=== PATIENT | female | born 1950 | race Caucasian/White ===

== ENCOUNTER → 2022-09-30 | Outpatient (CLI) | payer MEDICARE, BC | LOC: M WHC 10:28 | PROVIDERS: ATTEND Nurse Practitioner Family | DX: Z12.31 Encounter for screening mammogram for malignant neoplasm of breast (principal); Z78.0 Asymptomatic menopausal state ==

== ENCOUNTER → 2022-11-05 | Outpatient (REF) | payer MEDICARE, BC ==
[2022-11-05 17:08] LABS: APPEARANCE, URINE CLEAR (CLEAR); BACTERIA, URINE AUTO NEGATIVE (NEGATIVE); BILIRUBIN, URINE AUTO NEGATIVE (NEGATIVE); BLOOD, URINE BLOOD NEGATIVE (NEGATIVE); COLOR, URINE STRAW (YELLOW); GLUCOSE, URINE (UA) AUTO NEGATIVE (NEGATIVE); KETONE, URINE AUTO NEGATIVE (NEGATIVE); LEUKOCYTE ESTERASE, URINE AUTO NEGATIVE (NEGATIVE); NITRITE, URINE AUTO NEGATIVE (NEGATIVE); PROTEIN, URINE AUTO 1+ mg/dL (NEGATIVE); RBC, URINE AUTO 0 /HPF (0-3); SPECIFIC GRAVITY URINE AUTO 1.005 (1.002-1.035); SQUAMOUS EPITHELIAL CELL UR AU 0 /HPF (0-6); UROBILINOGEN, URINE AUTO 0.2 mg/dL (0.0-2.0); WBC, URINE AUTO 0 /HPF (0-3)
[2022-11-05 17:27] LABS: TOTAL PROTEIN,RANDOM URINE 25.8 MG/DL (0.0-14.0)
[2022-11-05 17:32] LABS: CREATININE,RANDOM URINE 15.9 MG/DL
[2022-11-05 17:44] LABS: BASO % 0.8 % (0.0-1.0); EOS # 0.2 10^3/uL (0.0-0.5); EOS % 4.2 % (0.0-3.0); HEMATOCRIT 42.6 % (36.0-47.0); HEMOGLOBIN 13.9 g/dl (12.0-15.5); LYMPH # 1.4 10^3/uL (1.5-5.0); LYMPH % 27.5 % (24.0-44.0); MEAN CORPUSCULAR HEMOGLOBIN 31.6 pg (27.0-33.0); MEAN CORPUSCULAR HGB CONC 32.6 g/dl (32.0-36.5); MEAN CORPUSCULAR VOLUME 96.8 fl (80.0-96.0); MONO # 0.8 10^3/uL (0.0-0.8); MONO % 16.4 % (2.0-8.0); NEUTROPHILS # 2.6 10^3/uL (1.5-8.5); NEUTROPHILS % 50.7 % (36.0-66.0); PLATELET COUNT, AUTOMATED 203 10^3/uL (150-450); WHITE BLOOD COUNT 5.1 10^3/uL (4.0-10.0)
[2022-11-05 18:13] LABS: C REACTIVE PROTEIN QUANTITATIV < 0.40 MG/DL (<1.0)
[2022-11-05 18:14] LABS: ERYTHROCYTE SEDIMENTATION RATE 36 mm/hr (0-30)
[2022-11-05 18:15] LABS: ALBUMIN 4.7 G/DL (3.2-5.2); ALKALINE PHOSPHATASE 55 U/L (46-116); ALT/SGPT 51 U/L (7.0-40); AST/SGOT 38 U/L (<34); BILIRUBIN,TOTAL 0.9 MG/DL (0.3-1.2); BLOOD UREA NITROGEN 15 MG/DL (9-23); CALCIUM LEVEL 9.8 MG/DL (8.3-10.6); CARBON DIOXIDE LEVEL 29 MMOL/L (20-31); CHLORIDE LEVEL 100 MMOL/L (98-107); COMPLEMENT C3 156.7 MG/DL (90.0-170.0); COMPLEMENT C4 33.7 MG/DL (12-36); CREATININE FOR GFR 0.66 MG/DL (0.55-1.30); GLOMERULAR FILTRATION RATE > 60.0 (>39); GLUCOSE, FASTING 97 MG/DL (74-106); POTASSIUM SERUM 3.9 MMOL/L (3.5-5.1); SODIUM LEVEL 137 MMOL/L (136-145)
== END ==
LOC: M SFHCRHEU 12:39
PROVIDERS: ATTEND Internal Medicine Rheumatology
DX: R76.8 Other specified abnormal immunological findings in serum (principal); M25.50 Pain in unspecified joint

== ENCOUNTER → 2022-11-07 | Outpatient (CLI) | payer MEDICARE, BC | LOC: M RAD 10:08 | PROVIDERS: ATTEND Internal Medicine Rheumatology | DX: R76.8 Other specified abnormal immunological findings in serum (principal); M25.50 Pain in unspecified joint ==

== ENCOUNTER → 2022-11-07 | Outpatient (CLI) | payer MEDICARE, BC | LOC: M RAD 09:59 | PROVIDERS: ATTEND Nurse Practitioner Family | DX: Z12.2 Encounter for screening for malignant neoplasm of respiratory organs (principal); F17.211 Nicotine dependence, cigarettes, in remission; I65.23 Occlusion and stenosis of bilateral carotid arteries; R76.8 Other specified abnormal immunological findings in serum; M25.50 Pain in unspecified joint ==

== ENCOUNTER → 2022-11-07 | Outpatient (CLI) | payer MEDICARE, BC | LOC: M RAD 10:02 | PROVIDERS: ATTEND Physician Assistant | DX: I65.23 Occlusion and stenosis of bilateral carotid arteries (principal) ==

== ENCOUNTER 2023-02-05 09:10 | Day surgery (SDC) | payer MEDICARE, BC ==
[~2023-02-05] VITALS: Ht 167.6 cm; Wt 83.6 kg
[~2023-02-05 09:10] MED LIST: AMLO1TAB24 PO; ATOR80TA59 PO; CALC500T52 PO; CETI5CHW PO; COQ150CH PO; EZET10TA21 PO; GLUC1CAP10 PO; LISI40TA4 PO; METO50TA7 PO; NS 1,000 ML IV ONE; VITA-243 PO; VITA100093 PO; VITMTA PO
[2023-02-05] MEDS ORDERED: ASPI-655 PO (09:41)
[2023-02-05] MEDS ORDERED: propofoL 200 MG/20 ML VIAL As Ordered ONE (11:04)
[2023-02-05] MEDS ORDERED: LIDOCAINE 2% INJ 100 MG/5 ML SYRINGE As Ordered ONE (11:04)
[2023-02-05 11:29] VITALS: TEMP 99.2
[2023-02-05 11:49] VITALS: BP 189/82; O2SAT 100
== END 2023-02-05 11:52 | disposition home or self-care (01) ==
LOC: M OPP 09:10
PROVIDERS: ATTEND Internal Medicine Gastroenterology
DX: Z12.11 Encounter for screening for malignant neoplasm of colon (principal); D12.0 Benign neoplasm of cecum; Z86.010 Personal history of colon polyps; K64.0 First degree hemorrhoids; I25.10 Atherosclerotic heart disease of native coronary artery without angina pectoris; I25.2 Old myocardial infarction; E78.00 Pure hypercholesterolemia, unspecified; Z95.5 Presence of coronary angioplasty implant and graft; Z79.899 Other long term (current) drug therapy; Z88.0 Allergy status to penicillin; Z88.5 Allergy status to narcotic agent; Z88.1 Allergy status to other antibiotic agents

== ENCOUNTER → 2023-07-03 | Outpatient (REF) | payer MEDICARE, BC ==
[~2023-07-03] MED LIST changes: +ASPI-655 PO; -NS 1,000 ML IV ONE
== END ==
LOC: M SFHCDERM 16:42
PROVIDERS: ATTEND Physician Assistant
DX: D22.39 Melanocytic nevi of other parts of face (principal)

== ENCOUNTER → 2024-01-12 | Outpatient (CLI) | payer MEDICARE, BC | LOC: M RAD 10:41 | PROVIDERS: ATTEND Nurse Practitioner Family | DX: Z87.891 Personal history of nicotine dependence (principal) ==

== ENCOUNTER → 2024-01-16 | Outpatient (REF) | payer MEDICARE, BC ==
[2024-01-16 19:02] LABS: COMPLEMENT C3 158.9 MG/DL (90.0-170.0)
[2024-01-19 12:07] LABS: PROTEIN CREATININE RATIO 1227 mg/g creat (24-184); T PROTEIN CREATININE RATIO 1.227 (0.024-0.184); UPEP CREATININE 22 mg/dL (20-275); UPEP TOTAL PROTEIN 27 mg/dL (5-24)
[2024-01-19 20:57] LABS: UPEP ALBUMIN 78 %; URINE ALPHA 1 GLOBULIN 5 %; URINE ALPHA 2 GLOBULIN 4 %; URINE BETA GLOBULIN 8 %; URINE GAMMA GLOBULIN 6 %
[2024-01-22 11:12] LABS: ANTI-GLOMERULAR BASEMENT MEMB < 1.0 AI (<1.0)
== END ==
LOC: M LAB REF 17:01
PROVIDERS: ATTEND Internal Medicine Nephrology
DX: N18.31 Chronic kidney disease, stage 3a (principal); R80.9 Proteinuria, unspecified

== ENCOUNTER → 2024-02-05 | Outpatient (CLI) | payer MEDICARE, BC | LOC: M WHC 11:32 | PROVIDERS: ATTEND Nurse Practitioner Family | DX: Z12.31 Encounter for screening mammogram for malignant neoplasm of breast (principal); R92.333 Mammographic heterogeneous density, bilateral breasts ==

== ENCOUNTER → 2024-02-16 | Outpatient (CLI) | payer MEDICARE, BC | LOC: M RAD 08:44 | PROVIDERS: ATTEND Internal Medicine Nephrology | DX: I70.1 Atherosclerosis of renal artery (principal) ==

== ENCOUNTER → 2024-11-16 | Outpatient (CLI) | payer MEDICARE, BC ==
[~2024-11-16] MED LIST changes: +LISI40TA10 PO; -LISI40TA4 PO
== END ==
LOC: M RAD 10:27
PROVIDERS: ATTEND Internal Medicine Cardiovascular Disease
DX: I65.23 Occlusion and stenosis of bilateral carotid arteries (principal)

== ENCOUNTER → 2025-02-08 | Outpatient (CLI) | payer MEDICARE, BC ==
[~2025-02-08] MED LIST changes: -ASPI-655 PO; +ASPI-737 PO; -EZET10TA21 PO; +EZET10TA57 PO
== END ==
LOC: M WHC 12:37
PROVIDERS: ATTEND Nurse Practitioner Family
DX: Z12.31 Encounter for screening mammogram for malignant neoplasm of breast (principal); M81.0 Age-related osteoporosis without current pathological fracture; R92.333 Mammographic heterogeneous density, bilateral breasts